=== PATIENT | female | born 1980 | race Caucasian/White ===

== ENCOUNTER 2020-07-20 07:29 | Day surgery (SDC) | payer BC ==
[2020-07-14 13:01] LABS: APPEARANCE,URINE CLEAR; BILIRUBIN,URINE NEGATIVE (NEGATIVE); COLOR,URINE YELLOW; GLUCOSE, URINE NEGATIVE (NEGATIVE); KETONES,URINE NEGATIVE (NEGATIVE); LEUKOCYTE ESTERASE,URINE NEGATIVE (NEGATIVE); NITRITE,URINE NEGATIVE (NEGATIVE); PROTEIN,URINE NEGATIVE (NEGATIVE); URINE SPECIFIC GRAVITY 1.012; UROBILINOGEN,URINE NEGATIVE mg/dL (<2.0)
[2020-07-14 13:09] LABS: HEMATOCRIT 39.4 % (36.0-47.0); HEMOGLOBIN 13.3 g/dL (12.0-15.5); MEAN CORPUSCULAR HGB CONC 33.7 g/dL (32.0-36.0); MEAN CORPUSCULAR VOLUME 89 fl (80-97); PLATELET COUNT 248 10^3/uL (150-450); RED BLOOD COUNT 4.44 10^6/uL (3.72-5.28); RED CELL DISTRIBUTION WIDTH 15.2 % (11.5-14.0); WHITE BLOOD COUNT 5.8 10^3/uL (4.0-10.5)
[~2020-07-20 07:29] MED LIST: FENTANYL CITRATE INJ/PF 100 MCG/2 ML AMPUL ONE; MIDAZOLAM 2 MG/2 ML INJ ONE; PROPOFOL INJ 200 MG/20 ML VIAL IV ONE; SUGAMMADEX SODIUM 200 MG/2 ML SDV IV ONE
[2020-07-20] MEDS ORDERED: SCOPOLAMINE HYDROBROMIDE 1.5 MG PATCH.TD72 ONE (09:38)
[2020-07-20] MEDS ORDERED: FENTANYL CITRATE INJ/PF 100 MCG/2 ML AMPUL IV PRN ×3 (10:07)
[2020-07-20] MEDS ORDERED: DIPHENHYDRAMINE HCL 50 MG/ML VIAL IV PRN (10:07)
[2020-07-20] MEDS ORDERED: PROMETHAZINE HCL INJ 25 MG/1 ML VIAL IV PRN ×2 (10:07)
[2020-07-20] MEDS ORDERED: MORPHINE SULFATE 10 MG/ML INJ IV PRN (10:07)
[2020-07-20] MEDS ORDERED: OXYCODONE-ACETAMINOPHEN 5-325 MG TABLET PO PRN ×4 (10:07→10:45)
[2020-07-20] MEDS ORDERED: KETOROLAC TROMETHAMINE INJ/PF 30 MG/1 ML SDV IV PRN (10:45)
[2020-07-20] MEDS ORDERED: IBUPROFEN 800 MG TABLET PO PRN (10:45)
[2020-07-20] MEDS ORDERED: RINGERS SOLUTION,LACTATED 1,000 ML IV PRN (10:45)
--- NOTE | 2020-07-20 10:50 | Operative Report ---
Operative Report DATE OF SURGERY: 07/20/20 PREOPERATIVE DIAGNOSIS: Unwanted fertility POSTOPERATIVE DIAGNOSIS: Same as above OPERATION: Laparoscopic bilateral tubal ligation with filshie clips SURGEON: CARO ALCAZAR ANESTHESIA: GA TISSUE REMOVED OR ALTERED: None COMPLICATIONS: None ESTIMATED BLOOD LOSS: 20 ml INTRAOPERATIVE FINDINGS: Normal appearing fallopian tubes, ovaries and uterus. Liver edge seen and appeared normal PROCEDURE: IV fluids: per anesthesia record Urinary output: bladder emptied prior to procedure Findings: Normal-appearing uterus bilateral fallopian tubes and ovaries. Liver edge seen and appears normal Position: To recovery room in stable condition Description of procedure: The patient was taken to the operating room and general anesthesia was administered and found to be adequate. She was then placed on the OR table in the dorsal lithotomy position. The Patient was prepped and draped in usual sterile fashion. Timeout was taken. A bivalve speculum was used to visualize the cervix. The anterior lip of the cervix was then grasped with a single tooth tenaculum and an acorn uterine manipulator was placed. At this time attention was turned to the patient's abdomen and sterile gloves were donned a 1 cm infra umbilical incision was made vertically and carried down to the level of the rectus fascia. The rectus fascia was then grasped with 2 Kelli clamps elevated and incised with William scissors. A digital sweep was done noting entry into the peritoneum. The fascia was tagged bilaterally with 0- vicryl suture. A #10 Arzate trocar was positioned and CO2 gas was used to insufflate the abdomen to a quantity sufficient for the laparoscopy. The lap aroscope was inserted and a survey was done of the abdomen pictures were obtained. Findings noted normal anatomy. The right fallopian tube was identified and traced to its fimbriated end. The right ovary was noted to be normal. A Filshie clip was then placed approximately 1 to 2 cm from the uterine cornu across the right fallopian tube. The Filshie clip was noted to surround the tube in its entirety good blanching and hemostasis was noted. The left fallopian tube was then traced to its fibriated end and a Filshie clip was placed 1 to 2 cm from the uterine cornu on the left fallopian tube. The Filshie clip was noted to surround the tube in its entirety with good blanching and hemostasis was noted. Pictures were obtained. At this point the procedure was terminated. All instrument removed from the patient's abdomen and CO2 gas was allowed to escape. The infraumbilical port was removed. The fascia was closed with 0 Vicryl suture. The skin was closed with 3-0 Monocryl in a series of interrupted stitiches. The skin incision was then clean dried and Dermabond was applied over the skin incision. All instrument sponge and needle counts were correct x3 for the procedure the patient tolerated the procedure well. She will proceed to recovery room in stable condition
[2020-07-20] MEDS ORDERED: MEPERIDINE HCL/PF INJ 25 MG/1 ML DISP.SYRIN ONE (10:57)
[2020-07-20] MEDS: MEPERIDINE HCL/PF INJ 25 MG/1 ML DISP.SYRIN IV PRN ×2 (10:57→11:02)
--- NOTE | 2020-07-20 11:00 | Discharge Summary ---
Discharge Summary (SDC) - Discharge Final Diagnosis: Unwanted fertility Date of Surgery: 07/20/20 Discharge Date: 07/20/20 Condition: Stable Treatment or Instructions: Walk frequently Regular diet No heavy lifting > 10 lbs No intercourse until post-op visit May shower as needed and pat incision dry No driving a car until narcotics stopped and can make sudden movements. Prescriptions: Ibuprofen [Ibu] 800 mg PO Q8 10 Days #30 tablet Oxycodone HCl/Acetaminophen [Percocet 5-325 mg Tablet] 1 tab PO Q4 PRN 4 Days #24 tablet PRN Reason: For Pain Scale 4-5 Ondansetron [Zofran Odt 4 mg Tablet] 1 - 2 tab PO Q4HP PRN #10 tab.rapdis PRN Reason: Referrals: MALCOLM POSADA DO [Primary Care Provider] - CARO NOEL MD [ACTIVE PROVISIONAL STAFF] - (F/u in approx [address] Noel post op) Discharge Diet: As Tolerated Respiratory Treatments at Home: Deep Breathing/Coughing Discharge Activity: Activity As Tolerated, No Driving, No Lifting Over 10 Pounds, Slowly Increase Activity, Walk Frequently Home Care Assistance: None Needed Report the Following to Your Physician Immediately: Shortness of Breath, Vomiting, Increase in Pain, Fever over 101 Degrees, Unusual Bleeding, Increased Vaginal Bleed, IV Site Infection Signs
[2020-07-20] MEDS ORDERED: MORPHINE SULFATE 10 MG/ML INJ ONE (11:22)
[2020-07-20] MEDS ORDERED: OXYCODONE-ACETAMINOPHEN 5-325 MG TABLET ONE (11:57)
[2020-07-20] MEDS ORDERED: METOCLOPRAMIDE HCL INJ/PF 10 MG/2 ML SDV ONE (12:14)
[2020-07-20] MEDS ORDERED: ROCURONIUM BROMIDE INJ 50 MG/5 ML VIAL IV ONE (12:14)
[2020-07-20] MEDS ORDERED: ONDANSETRON HCL INJ/PF 4 MG/2 ML SDV ONE (12:14)
[2020-07-20] MEDS ORDERED: DIPHENHYDRAMINE HCL 50 MG/ML VIAL ONE (12:14)
[2020-07-20] MEDS ORDERED: DEXAMETHASONE SOD PHOSPHATE INJ 4 MG/1 ML VIAL ONE (12:14)
[2020-07-20] MEDS ORDERED: KETOROLAC TROMETHAMINE 60 MG/2 ML SDV ONE (12:14)
[2020-07-20 13:27] VITALS: BP 118/78
== END 2020-07-20 13:05 | disposition home or self-care (01) ==
LOC: OROUT 07:29
PROVIDERS: ATTEND Obstetrics & Gynecology
DX: Z30.2 Encounter for sterilization (principal); F41.9 Anxiety disorder, unspecified; Z03.818 Encounter for observation for suspected exposure to other biological agents ruled out; F17.210 Nicotine dependence, cigarettes, uncomplicated; E16.2 Hypoglycemia, unspecified; E88.81 Metabolic syndrome and other insulin resistance; Z79.899 Other long term (current) drug therapy; Z85.828 Personal history of other malignant neoplasm of skin
CPT/HCPCS: 36415; 82962; 85027; 81005; 81025; 00851; 58671; U0003; J2250; J3490 ×2; J1100; J1200; J1885; J3010; J2175; J2765; J2270; J2405; J2704; C9803; 851; 87635